=== PATIENT | male | born 1960 | race African-American/Black ===

== ENCOUNTER 2019-09-23 21:55 | Inpatient (IN) | payer MEDICAID ==
[~2019-09-23] VITALS: Ht 177.8 cm; Wt 86.2 kg
[2019-09-23] MEDS ORDERED: FUROSEMIDE 40MG/4ML VIAL IV ONE (23:15)
[2019-09-23 23:30] LABS: CHLORIDE 111 mEq/L (98-107)
[2019-09-23 23:32] LABS: INR 1.1; PROTHROMBIN TIME 11.1 sec (9.6-11.0)
[2019-09-23 23:36] LABS: EOSINOPHILS % 2.4 % (0.0-5.0); HEMATOCRIT. 44.2 % (42.0-52.0); HEMOGLOBIN. 14.5 g/dL (14.0-18.0); LYMPHOCYTES % 38.8 % (20.0-50.0); MEAN CORPUSCULAR HEMOGLOBIN 27.7 pg (28.0-32.0); MEAN CORPUSCULAR VOLUME 84.5 fL (80.0-94.0); MEAN PLATELET VOLUME 8.9 fl (7.4-10.4); MONOCYTES % 9.5 % (2.0-8.0); NEUTROPHILS % 48.3 % (40.0-76.0); PLATELET 176 x1000/uL (130-400); RED BLOOD CELL COUNT 5.23 mill/uL (4.7-6.1); RED CELL DISTRIBUTION WIDTH 17.7 % (11.6-14.6)
[2019-09-24] MEDS ORDERED: DEXT 5%/0.45% NACL 1000ML 1,000 ML IV SCH (10:15)
[2019-09-24 10:43] LABS: EOSINOPHILS % 2.2 % (0.0-5.0); HEMOGLOBIN. 13.9 g/dL (14.0-18.0); MEAN CORPUSCULAR HEMOGLOBIN 27.7 pg (28.0-32.0); MEAN PLATELET VOLUME 8.6 fl (7.4-10.4); MONOCYTES % 7.5 % (2.0-8.0); NEUTROPHILS % 60.3 % (40.0-76.0); PLATELET 161 x1000/uL (130-400); RED CELL DISTRIBUTION WIDTH 17.7 % (11.6-14.6)
[2019-09-24] MEDS ORDERED: ACETAMINOPHEN 325MG TABLET PO PRN (10:45)
[2019-09-24] MEDS ORDERED: ONDANSETRON HCL 4MG/2ML INJ IV PRN (10:45)
[2019-09-24 10:52] LABS: CHLORIDE 112 mEq/L (98-107)
[2019-09-24 11:02] LABS: LDL CHOLESTEROL 88 mg/dL (5-100)
[2019-09-24 11:03] LABS: HDL CHOLESTEROL 47 mg/dL (40-59)
[2019-09-24] MEDS: NITROGLYCERIN OINT 1GM/INCH UDPKT TD SCH ×3 (11:08→22:19)
[2019-09-24] MEDS: AMLODIPINE 5MG TABLET PO NR ×2 (11:08→14:31)
[2019-09-24] MEDS: METOPROLOL TARTRATE 25MG TABLET PO SCH ×2 (11:10→22:18)
[2019-09-24 13:04] LABS: *AMPHETAMINES SCREEN URINE NEGATIVE (NEGATIVE); *BARBITURATES SCREEN URINE NEGATIVE (NEGATIVE); *BENZODIAZEPINES SCREEN URINE NEGATIVE (NEGATIVE); *COCAINE SCREEN URINE NEGATIVE (NEGATIVE)
[2019-09-24 13:05] LABS: CANNABINOID URINE SCREEN NEGATIVE (NEGATIVE); METHADONE URINE SCREEN NEGATIVE (NEGATIVE); OPIATES URINE SCREEN NEGATIVE (NEGATIVE); PHENCYCLIDINE URINE SCREEN NEGATIVE (NEGATIVE)
[2019-09-24 13:13] LABS: HEPATITIS B SURFACE ANTIGEN NEGATIVE
[2019-09-24 13:43] LABS: HEPATITIS A AB IGM NEGATIVE (NEGATIVE)
[2019-09-24] MEDS: AMLODIPINE 5MG TABLET PO SCH (13:45)
[2019-09-24 21:15] VITALS: BP 146/111
[2019-09-24 22:00] VITALS: BP 144/101
[2019-09-25] VITALS (15 sets, daily range): BP systolic 118–152; BP diastolic 58–100
[2019-09-25] MEDS: NITROGLYCERIN OINT 1GM/INCH UDPKT TD SCH ×2 (06:09→15:43)
[2019-09-25 06:31] LABS: CHLORIDE 112 mEq/L (98-107)
[2019-09-25 06:34] LABS: BASOPHILS % 1.1 % (0.0-2.0); EOSINOPHILS % 2.8 % (0.0-5.0); HEMATOCRIT. 39.2 % (42.0-52.0); LYMPHOCYTES % 31.7 % (20.0-50.0); MEAN CORPUSCULAR HEMOGLOBIN 27.6 pg (28.0-32.0); MEAN PLATELET VOLUME 9.1 fl (7.4-10.4); MONOCYTES % 9.1 % (2.0-8.0); NEUTROPHILS % 55.3 % (40.0-76.0); PLATELET 163 x1000/uL (130-400); RED BLOOD CELL COUNT 4.72 mill/uL (4.7-6.1); RED CELL DISTRIBUTION WIDTH 17.7 % (11.6-14.6)
[2019-09-25] MEDS ORDERED: LIDOCAINE HCL 1% 20ML VIAL (Pyxis) INJ ONE (07:46)
[2019-09-25] MEDS ORDERED: MIDAZOLAM HCL 2 MG/2 ML VIAL ONE (07:46)
[2019-09-25] MEDS ORDERED: FENTANYL CITRATE/PF 50MCG/ML 2ML VIAL ONE (07:46)
[2019-09-25] MEDS ORDERED: IODIXANOL 320MG/ML 100 ML BOTTLE IV ONE (07:46)
[2019-09-25] MEDS: METOPROLOL TARTRATE 25MG TABLET PO SCH (08:14)
[2019-09-25] MEDS: AMLODIPINE 5MG TABLET PO SCH (08:14)
[2019-09-25] MEDS ORDERED: CLOPIDOGREL 75MG TABLET PO SCH (09:00)
[2019-09-25] MEDS ORDERED: FUROSEMIDE 40MG/4ML VIAL IVP SCH (09:00)
[2019-09-25] MEDS ORDERED: ASPIRIN 81MG EC TABLET PO SCH (09:00)
[2019-09-25] MEDS ORDERED: ATROPINE SULFATE 1MG/10ML SYR IV PRN (10:00)
[2019-09-25] MEDS ORDERED: ACETAMINOPHEN 325MG TABLET PO PRN (10:00)
== END 2019-09-25 16:57 | disposition home or self-care (01) | DRG 192 ==
LOC: ER 21:55 → 3WST 09-24 00:23 → EDBEDREQ 09-24 00:26 → ENRESERV 09-24 15:05
PROVIDERS: ADMIT Internal Medicine; ATTEND Internal Medicine
PROC: 4A023N7 Measurement of Cardiac Sampling and Pressure, Left Heart, Percutaneous Approach (ICD-10-PCS; principal; 2019-09-25)
PROC: B2111ZZ Fluoroscopy of Multiple Coronary Arteries using Low Osmolar Contrast (ICD-10-PCS; 2019-09-25)
DX: I11.0 Hypertensive heart disease with heart failure (principal); N17.0 Acute kidney failure with tubular necrosis; E44.1 Mild protein-calorie malnutrition; E87.8 Other disorders of electrolyte and fluid balance, not elsewhere classified; I25.10 Atherosclerotic heart disease of native coronary artery without angina pectoris; E78.5 Hyperlipidemia, unspecified; R74.0 Nonspecific elevation of levels of transaminase and lactic acid dehydrogenase [LDH]; I50.33 Acute on chronic diastolic (congestive) heart failure; Z20.828 Contact with and (suspected) exposure to other viral communicable diseases; I25.2 Old myocardial infarction; Z68.27 Body mass index [BMI] 27.0-27.9, adult; Z95.5 Presence of coronary angioplasty implant and graft
CPT/HCPCS: 36415; 71045; 80048; 80053; 80061; 80305; 83880; 84443; 84484; 85025; 86705; 86709; 86803; 87340; 93005; 93306; 93458; 99285; C1760; C1769; C1887; C1893; J1644; J1940; J2250; J3010; J3490; Q9967; U0003-CS

== ENCOUNTER 2019-10-09 11:02 | Inpatient (IN) | payer MEDICAID ==
[~2019-10-09] VITALS: Ht 182.9 cm; Wt 77.8 kg
[2019-10-09] MEDS ORDERED: SODIUM CHLORIDE 0.9% 1,000 ML IV ONE (11:44)
[2019-10-09] MEDS ORDERED: ONDANSETRON HCL 4MG/2ML INJ IV STA (11:44)
[2019-10-09] MEDS ORDERED: MORPHINE SULFATE 4 MG/ML CPJ (NOT FOR IM USE) IV STA (11:44)
[2019-10-09] MEDS ORDERED: FUROSEMIDE 40MG/4ML VIAL IVP ONE (11:45)
[2019-10-09 11:59] LABS: BASOPHILS % 1.5 % (0.0-2.0); EOSINOPHILS % 1.6 % (0.0-5.0); HEMATOCRIT. 46.8 % (42.0-52.0); HEMOGLOBIN. 15.1 g/dL (14.0-18.0); LYMPHOCYTES % 29.3 % (20.0-50.0); MEAN CORPUSCULAR HEMOGLOBIN 27.6 pg (28.0-32.0); MEAN CORPUSCULAR VOLUME 85.6 fL (80.0-94.0); MEAN PLATELET VOLUME 8.2 fl (7.4-10.4); MONOCYTES % 7.5 % (2.0-8.0); NEUTROPHILS % 60.1 % (40.0-76.0); PLATELET 164 x1000/uL (130-400); RED BLOOD CELL COUNT 5.46 mill/uL (4.7-6.1)
[2019-10-09 12:08] LABS: CHLORIDE 111 mEq/L (98-107)
[2019-10-09 12:11] LABS: INR 1.1; PARTIAL THROMBOPLASTIN TIME 24.5 sec (23.4-31.0); PROTHROMBIN TIME 11.5 sec (9.6-11.0)
[2019-10-09] MEDS ORDERED: ONDANSETRON HCL 4MG/2ML INJ IV NR (12:15)
[2019-10-09] MEDS ORDERED: MORPHINE SULFATE 4 MG/ML CPJ (NOT FOR IM USE) IV NR (12:15)
[2019-10-09] MEDS ORDERED: FUROSEMIDE 40MG/4ML VIAL IVP NR (12:15)
[2019-10-09 13:38] LABS: CLARITY URINE CLEAR (CLEAR); COLOR URINE YELLOW (YELLOW); KETONES URINE NEGATIVE (NEGATIVE); LEUKOCYTE ESTERASE URINE NEGATIVE (NEGATIVE); NITRITE URINE NEGATIVE (NEGATIVE); OCCULT BLOOD URINE NEGATIVE (NEGATIVE); PH URINE 5.5 (4.5-8.0); PROTEIN URINE NEGATIVE (NEGATIVE); SPECIFIC GRAVITY URINE 1.007 (1.005-1.030); UROBILINOGEN URINE 0.2 E.U./dL (0.2-1.0)
[2019-10-09] MEDS ORDERED: ACETAMINOPHEN 325MG TABLET PO PRN (14:15)
[2019-10-09] MEDS ORDERED: CLONIDINE 0.1MG TABLET PO PRN (14:15)
[2019-10-09] MEDS ORDERED: IPRATROPIUM/ALBUTEROL 0.5-3(2.5)MG/3ML NEB HHN PRN (14:15)
[2019-10-09 14:53] LABS: PHOSPHORUS 3.5 mg/dL (2.5-4.9)
[2019-10-09] MEDS ORDERED: MORPHINE SULFATE 2 MG/ML CPJ (NOT FOR IM USE) IV PRN (16:00)
[2019-10-09] MEDS ORDERED: CLONIDINE 0.2MG TABLET PO PRN (17:15)
[2019-10-09 18:00] VITALS: BP 153/106
[2019-10-09] MEDS ORDERED: METO25TA6 MT (18:29)
[2019-10-09] MEDS ORDERED: ASPI-986 MT (18:29)
[2019-10-09] MEDS ORDERED: LISI2.5T47 MT (18:29)
[2019-10-09 20:00] VITALS: BP 149/93
[2019-10-09] MEDS: AMLODIPINE 5MG TABLET PO SCH (21:03)
[2019-10-09] MEDS: DIPHENHYDRAMINE 50MG/ML VIAL IV PRN (21:43)
[2019-10-10 00:30] VITALS: BP 150/113
[2019-10-10] MEDS ORDERED: DEXTROSE 50% WATER 50ML SYRINGE IV PRN (00:45)
[2019-10-10 04:00] VITALS: BP 146/108
[2019-10-10] MEDS: BLOOD SUGAR DIAGNOSTIC STRIP TEST SCH ×4 (05:55→20:35)
[2019-10-10] MEDS: INSULIN LISPRO 100 UNITS/ML SUBCUT SCH ×4 (05:55→20:37)
[2019-10-10 07:19] LABS: BASOPHILS % 1.1 % (0.0-2.0); EOSINOPHILS % 2.9 % (0.0-5.0); HEMATOCRIT. 44.6 % (42.0-52.0); HEMOGLOBIN. 14.8 g/dL (14.0-18.0); LYMPHOCYTES % 33.9 % (20.0-50.0); MEAN CORPUSCULAR HEMOGLOBIN 28.1 pg (28.0-32.0); MEAN CORPUSCULAR VOLUME 84.4 fL (80.0-94.0); MEAN PLATELET VOLUME 8.5 fl (7.4-10.4); MONOCYTES % 8.7 % (2.0-8.0); NEUTROPHILS % 53.4 % (40.0-76.0); PLATELET 151 x1000/uL (130-400); RED BLOOD CELL COUNT 5.28 mill/uL (4.7-6.1); RED CELL DISTRIBUTION WIDTH 18.4 % (11.6-14.6)
[2019-10-10 07:29] LABS: CHLORIDE 113 mEq/L (98-107)
[2019-10-10 07:42] LABS: LDL CHOLESTEROL 95 mg/dL (5-100)
[2019-10-10 07:43] LABS: HDL CHOLESTEROL 47 mg/dL (40-59)
[2019-10-10 08:00] VITALS: BP 154/112
[2019-10-10] MEDS: AMLODIPINE 5MG TABLET PO SCH ×2 (08:22→20:47)
[2019-10-10] MEDS: DIPHENHYDRAMINE 50MG/ML VIAL IV PRN ×2 (09:43→22:48)
[2019-10-10] MEDS ORDERED: ASPI-1497 PO (11:02)
[2019-10-10] MEDS ORDERED: CLOP75TA4 PO (11:20)
[2019-10-10] MEDS ORDERED: CLOPIDOGREL 75MG TABLET PO SCH (11:45)
[2019-10-10] MEDS: LISINOPRIL 20MG TABLET PO SCH ×2 (11:59→20:46)
[2019-10-10 12:00] VITALS: BP 172/100
[2019-10-10] MEDS: CLOPIDOGREL 75MG TABLET PO SCH (12:00)
[2019-10-10] MEDS: ASPIRIN 81MG EC TABLET PO SCH (12:00)
[2019-10-10] MEDS ORDERED: LISINOPRIL 2.5MG TABLET PO SCH (12:00)
[2019-10-10] MEDS ORDERED: METOPROLOL TARTRATE 25MG TABLET PO SCH (12:00)
[2019-10-10] MEDS: METOPROLOL TARTRATE 50MG TABLET PO SCH ×2 (12:00→20:46)
[2019-10-10] MEDS: FUROSEMIDE 40MG/4ML VIAL IVP SCH (12:01)
[2019-10-10] MEDS ORDERED: ONDANSETRON HCL 4MG/2ML INJ IV PRN (14:30)
[2019-10-10 16:00] VITALS: BP 121/94
[2019-10-10] MEDS: PANTOPRAZOLE SODIUM 40 MG/VIAL IV SCH (18:00)
[2019-10-10 20:00] VITALS: BP 127/96
[2019-10-10] MEDS ORDERED: ATORVASTATIN CALCIUM 40MG TABLET PO SCH (21:00)
[2019-10-11] VITALS: BP 119/92
[2019-10-11 04:00] VITALS: BP 128/96
[2019-10-11 04:15] VITALS: BP 123/93
[2019-10-11] MEDS: DIPHENHYDRAMINE 50MG/ML VIAL IV PRN (04:37)
[2019-10-11] MEDS: BLOOD SUGAR DIAGNOSTIC STRIP TEST SCH ×2 (06:47→12:20)
[2019-10-11 06:58] LABS: INR 1.2; PROTHROMBIN TIME 12.1 sec (9.6-11.0)
[2019-10-11 07:03] LABS: CHLORIDE 112 mEq/L (98-107)
[2019-10-11 07:19] LABS: BASOPHILS % 0.8 % (0.0-2.0); EOSINOPHILS % 3.5 % (0.0-5.0); HEMATOCRIT. 42.4 % (42.0-52.0); HEMOGLOBIN. 13.7 g/dL (14.0-18.0); LYMPHOCYTES % 35.2 % (20.0-50.0); MEAN CORPUSCULAR HEMOGLOBIN 27.7 pg (28.0-32.0); MEAN CORPUSCULAR VOLUME 85.6 fL (80.0-94.0); MEAN PLATELET VOLUME 8.7 fl (7.4-10.4); MONOCYTES % 9.9 % (2.0-8.0); NEUTROPHILS % 50.6 % (40.0-76.0); PLATELET 133 x1000/uL (130-400); RED BLOOD CELL COUNT 4.96 mill/uL (4.7-6.1); RED CELL DISTRIBUTION WIDTH 18.8 % (11.6-14.6)
[2019-10-11] MEDS: INSULIN LISPRO 100 UNITS/ML SUBCUT SCH ×2 (07:50→12:50)
[2019-10-11 08:00] VITALS: BP 163/100
[2019-10-11] MEDS: LISINOPRIL 20MG TABLET PO SCH ×2 (09:00→09:22)
[2019-10-11] MEDS: FUROSEMIDE 40MG/4ML VIAL IVP SCH (09:21)
[2019-10-11] MEDS: PANTOPRAZOLE SODIUM 40 MG/VIAL IV SCH (09:21)
[2019-10-11] MEDS: CLOPIDOGREL 75MG TABLET PO SCH (09:22)
[2019-10-11] MEDS: METOPROLOL TARTRATE 50MG TABLET PO SCH (09:22)
[2019-10-11] MEDS: ASPIRIN 81MG EC TABLET PO SCH (09:22)
[2019-10-11] MEDS: AMLODIPINE 5MG TABLET PO SCH (09:23)
[2019-10-11] MEDS ORDERED: FURO40TA5 MT (11:41)
[2019-10-11] MEDS ORDERED: LISI-604 PO (11:41)
[2019-10-11] MEDS ORDERED: PROT40 MT (11:41)
[2019-10-11] MEDS ORDERED: METO-539 PO (11:41)
[2019-10-11] MEDS ORDERED: AMLO5TAB88 PO (11:41)
[2019-10-11 12:00] VITALS: BP 124/88
[2019-10-11 12:23] VITALS: BP 113/73
[2019-10-11] MEDS ORDERED: LACTULOSE 20G/30ML UDC PO SCH (17:00)
== END 2019-10-11 15:00 | disposition home or self-care (01) | DRG 241 ==
LOC: ER 11:02 → 6WST 13:20 → CANRESERV 17:02 → ENRESERV 17:02
PROVIDERS: ADMIT Internal Medicine; ATTEND Internal Medicine
DX: K29.70 Gastritis, unspecified, without bleeding (principal); K52.9 Noninfective gastroenteritis and colitis, unspecified; I25.10 Atherosclerotic heart disease of native coronary artery without angina pectoris; I11.0 Hypertensive heart disease with heart failure; E78.5 Hyperlipidemia, unspecified; R74.0 Nonspecific elevation of levels of transaminase and lactic acid dehydrogenase [LDH]; I50.23 Acute on chronic systolic (congestive) heart failure; R07.9 Chest pain, unspecified; K31.84 Gastroparesis; K57.90 Diverticulosis of intestine, part unspecified, without perforation or abscess without bleeding; I42.9 Cardiomyopathy, unspecified; D64.9 Anemia, unspecified; I25.2 Old myocardial infarction; Z95.5 Presence of coronary angioplasty implant and graft; Z79.82 Long term (current) use of aspirin; Z79.899 Other long term (current) drug therapy; Z79.02 Long term (current) use of antithrombotics/antiplatelets
CPT/HCPCS: 36415; 71045; 74176; 76700; 80048; 80053; 80061; 81003; 82140; 82962; 83036; 83735; 83880; 84075; 84100; 84443; 84450; 84460; 84484; 85025; 93005; 93970; 96374; 99285; C9113; J1200; J1940; J2270; J2405; J7030

== ENCOUNTER → 2019-12-29 | Outpatient (CLI) | payer MEDICAID ==
[~2019-12-29] MED LIST: AMLO5TAB88 PO; ASPI-1497 PO; CLOP75TA4 PO; FURO40TA5 MT; LISI-604 PO; METO-539 PO; PROT40 MT
== END | disposition home or self-care (01) ==
LOC: LAB 10:16
PROVIDERS: ATTEND Specialist
DX: Z01.812 Encounter for preprocedural laboratory examination (principal); R05 Cough; Z20.828 Contact with and (suspected) exposure to other viral communicable diseases
CPT/HCPCS: C9803; U0003